=== PATIENT | male | born 1975 | race Caucasian/White ===

== ENCOUNTER 2020-03-25 09:30 | Emergency (ER) | payer OTHER ==
[~2020-03-25] VITALS: Ht 177.8 cm; Wt 81.8 kg
[2020-03-25 09:32] VITALS: BP 121/84
[2020-03-25] MEDS ORDERED: KETOROLAC 30 MG/1 ML ONE (10:00)
[2020-03-25] MEDS ORDERED: SODIUM CHLORIDE 0.9% 1,000ML IVBOLUS ONE (10:00)
[2020-03-25] MEDS ORDERED: DIPHENHYDRAMINE 50 MG/ML, 1ML IVPush ONE (10:00)
[2020-03-25] MEDS ORDERED: METOCLOPRAMIDE 5 MG/ML, 2ML IVPush ONE (10:00)
[2020-03-25] MEDS ORDERED: DIPHENHYDRAMINE 50 MG/ML, 1ML ONE (10:00)
[2020-03-25] MEDS ORDERED: KETOROLAC 30 MG/1 ML IVPush ONE (10:00)
[2020-03-25] MEDS ORDERED: FAMOTIDINE 20 MG/2 ML ONE (10:00)
[2020-03-25] MEDS ORDERED: METOCLOPRAMIDE 5 MG/ML, 2ML ONE (10:07)
--- NOTE | 2020-03-25 10:13 | NUR ---
PT HAS CO MIGRAINE. PIV, MEDICATED PER ORDERS
--- NOTE | 2020-03-25 11:05 | NUR ---
Patient/Caregiver given discharge instructions and they have confirmed that they understand the instructions. Patient ambulatory with steady gait.
== END 2020-03-25 11:07 | disposition home or self-care (01) ==
LOC: ED 10:20
DX: G43.909 Migraine, unspecified, not intractable, without status migrainosus (principal); R11.0 Nausea; H53.149 Visual discomfort, unspecified; F17.290 Nicotine dependence, other tobacco product, uncomplicated
CPT/HCPCS: 96361; 96374; 96375; 99284; 99406; J1200; J1885; J2765; J7030

== ENCOUNTER 2020-09-02 10:40 | Emergency (ER) | payer OTHER ==
[~2020-09-02] VITALS: Ht 177.8 cm; Wt 80.3 kg
[2020-09-02 10:43] VITALS: BP 120/81
== END 2020-09-02 11:12 | disposition home or self-care (01) ==
LOC: ED 11:06
DX: J30.2 Other seasonal allergic rhinitis (principal); J45.909 Unspecified asthma, uncomplicated; G43.909 Migraine, unspecified, not intractable, without status migrainosus
CPT/HCPCS: 99283

== ENCOUNTER 2020-11-29 22:10 | Emergency (ER) | payer OTHER ==
[~2020-11-29] VITALS: Ht 177.8 cm; Wt 82.0 kg
[2020-11-29 22:13] VITALS: BP 135/75
--- NOTE | 2020-11-29 22:45 | NUR ---
GUIDE CRUISE: PT. TO ROOM FROM LOBBY AT THIS TIME.
== END 2020-11-30 00:21 | disposition home or self-care (01) ==
LOC: ED 23:21
DX: S92.514A Nondisplaced fracture of proximal phalanx of right lesser toe(s), initial encounter for closed fracture (principal); M79.671 Pain in right foot; J45.909 Unspecified asthma, uncomplicated; G43.909 Migraine, unspecified, not intractable, without status migrainosus; X58.XXXA Exposure to other specified factors, initial encounter; Y93.89 Activity, other specified; Y92.89 Other specified places as the place of occurrence of the external cause; Y99.8 Other external cause status
CPT/HCPCS: 99283